=== PATIENT | male | born 1955 | race African-American/Black ===

== ENCOUNTER → 2016-06-02 | Outpatient (CLI) | payer BC | LOC: RAD 07:26 | PROVIDERS: ATTEND Internal Medicine | DX: K74.69 Other cirrhosis of liver (principal) | CPT/HCPCS: 74177 ==

== ENCOUNTER 2017-09-28 05:11 | Emergency (ER) | payer BC ==
[2017-09-28 07:31] LABS: ABSOLUTE LYMPHOCYTES (AUTO) 0.5 10^3/uL (0.5-4.7); ABSOLUTE MONOCYTES (AUTO) 0.2 10^3/uL (0.1-1.4); ABSOLUTE NEUT (AUTO) 1.6 10^3/uL (1.7-8.2); BASOPHILS % (AUTO) 0.8 % (0-2); HEMATOCRIT 37.1 % (37.9-51.0); HEMOGLOBIN 12.5 g/dL (13.5-17.0); LYMPHOCYTES % (AUTO) 23.6 % (13-45); MEAN CORPUSCULAR HEMOGLOBIN 28.3 pg (27.0-33.4); MEAN CORPUSCULAR HGB CONC 33.6 g/dL (32.0-36.0); MEAN CORPUSCULAR VOLUME 84 fl (80-97); MONOCYTES % (AUTO) 7.5 % (3-13); RED BLOOD COUNT 4.41 10^6/uL (4.35-5.55); RED CELL DISTRIBUTION WIDTH 13.6 % (11.5-14.0); SEGMENTED NEUTROPHILS % (AUTO) 67.1 % (42-78); TOTAL CELLS COUNTED % (AUTO) 100 %; WHITE BLOOD COUNT 2.3 10^3/uL (4.0-10.5)
--- NOTE | 2017-09-28 07:41 | RADIOLOGY REPORT (SQ) ---
EXAM DESCRIPTION: XR CHEST 2 VIEWS COMPLETED DATE/TME: 09/28/2017 06:05 CLINICAL HISTORY: 61 years, Male, sob COMPARISON: None. NUMBER OF VIEWS: Two TECHNIQUE: Two views of the chest LIMITATIONS: None. FINDINGS: There is elevation of the right hemidiaphragm. The lungs are clear. The heart is normal in size. There is no pneumothorax or pleural effusion. There is no acute fracture IMPRESSION: No acute cardiopulmonary abnormality 2010 [employer]- All Rights Reserved
--- NOTE | 2017-09-28 07:42 | ER Document Report ---
ED Respiratory Problem - General Chief Complaint: Shortness Of Breath Stated Complaint: SHORT OF BREATH Time Seen by Provider: 09/28/17 07:19 Mode of Arrival: Ambulatory Information source: Patient Notes: Pt is a 61 year old male who presents to the ER today for shortness of breath that started last night. Pt works outside in the heat and has no history of asthma/copd, does not smoke. He does have a history of a blood clot to his right femoral vein from a liver transplant over a year ago, is not on blood thinners any longer. He denies chest pain with this sob, states it never hurt to take a deep breath and that the sob is gone now. He denies cough, fever, chills, wheezing or calf pain recently. TRAVEL OUTSIDE OF THE [place] IN LAST 30 DAYS: No - Related Data Allergies/Adverse Reactions: No Known Allergies Allergy (Unverified 05/20/14 13:29) Past Medical History - General Information source: Patient - Social History Smoking Status: Never Smoker Chew tobacco use (# tins/day): No Frequency of alcohol use: None Drug Abuse: None Family History: Reviewed & Not Pertinent Patient has suicidal ideation: No Patient has homicidal ideation: No - Past Medical History Cardiac Medical History: Reports: Hx Hypertension Renal/ Medical History: Denies: Hx Peritoneal Dialysis - Immunizations Hx Diphtheria, Pertussis, Tetanus Vaccination: Yes Hx Pneumococcal Vaccination: 12/10/13 Review of Systems - Review of Systems Constitutional: No symptoms reported EENT: No symptoms reported Cardiovascular: No symptoms reported Respiratory: See HPI Gastrointestinal: No symptoms reported Genitourinary: No symptoms reported Male Genitourinary: No symptoms reported Musculoskeletal: No symptoms reported Skin: No symptoms reported Hematologic/Lymphatic: No symptoms reported Neurological/Psychological: No symptoms reported Physical Exam - Vital signs Vitals: Temp Pulse Resp BP Pulse Ox 98.4 F 65 26 H 121/78 95 09/28/17 05:17 09/28/17 05:17 09/28/17 05:17 09/28/17 05:17 09/28/17 05:17 - Notes Notes: PHYSICAL EXAMINATION: GENERAL: well appearing and in no acute distress. HEAD: Atraumatic, normocephalic. EYES: Pupils equal round and reactive to light, extraocular movements intact, sclera anicteric, conjunctiva are normal. ENT: airway patent NECK: Normal range of motion, supple without lymphadenopathy LUNGS: CTAB and equal. No wheezes rales or rhonchi. HEART: Regular rate and rhythm without murmurs ABDOMEN: Soft, no tenderness. No guarding, no rebound BACK: no vertebral tenderness, normal ROM GI/: no CVA tenderness EXTREMITIES: Normal range of motion, no pitting edema. No cyanosis. NEUROLOGICAL: Cranial nerves grossly intact. Normal sensory/motor exams. PSYCH: Normal mood, normal affect. SKIN: Warm, Dry, normal turgor, no rashes or lesions noted Course - Re-evaluation Re-evalutation: 09/28/17 23:26 Pt has unremarkable workup today, advised his platelet level is low at 81, his chest x ray is normal, d dimer is normal, but has normal vitals here. He has not been sob at all here in the ER. I will provide him with an inhaler rx and have him use that as needed. to follow up with his pcp. and pt in agreement with plan. - Vital Signs Vital signs: Temp Pulse Resp BP Pulse Ox 98 F 65 20 150/70 H 95 09/28/17 09:50 09/28/17 05:17 09/28/17 09:51 09/28/17 09:50 09/28/17 09:51 - Laboratory Result Diagrams: 09/28/17 07:11 09/28/17 07:11 Laboratory results interpreted by me: 09/28/17 09/28/17 07:11 07:11 WBC 2.3 L Hgb 12.5 L Hct 37.1 L Plt Count 81 L Absolute Neutrophils 1.6 L Chloride 108 H Discharge - Discharge Clinical Impression: SOB (shortness of breath) Condition: Stable Disposition: HOME, SELF-CARE Additional Instructions: Return immediately for any new or worsening symptoms. Follow up with primary care provider, call tomorrow to make followup appointment. We are giving you an inhaler today, please use it every 4 hours as needed for shortness of breath. It does not appear like you have a blood clot today, your cardiac workup was normal, you are not having some type of injury to her heart today. Your chest x-ray was normal today. He did not have pneumonia. Prescriptions: Albuterol Sulfate [Proair HFA Inhalation Aerosol 8.5 gm MDI] 2 puff IH Q4H PRN # 1 mdi PRN Reason: Forms: Return to Work Referrals: HENRY KELLER MD [Primary Care Provider] - Follow up as needed
[2017-09-28 07:47] LABS: ANION GAP 10 (5-19); BLOOD UREA NITROGEN 12 mg/dL (7-20); CALCIUM 9.1 mg/dL (8.4-10.2); CARBON DIOXIDE 24 mmol/L (22-30); CHLORIDE 108 mmol/L (98-107); GLUCOSE 94 mg/dL (75-110); POTASSIUM 4.4 mmol/L (3.6-5.0); SODIUM 142.1 mmol/L (137-145)
[2017-09-28 07:51] LABS: PLATELET COUNT 81 10^3/uL (150-450)
[2017-09-28 09:51] VITALS: BP 150/70
--- NOTE | 2017-09-28 22:05 | EKG REPORT ---
SEVERITY:- ABNORMAL ECG - SINUS RHYTHM FIRST DEGREE AV BLOCK : Confirmed by: Sena Friedman 28-Sep-2017 22:05:05
== END 2017-09-28 09:52 | disposition home or self-care (01) ==
LOC: ER 05:11
DX: R06.02 Shortness of breath (principal); D69.6 Thrombocytopenia, unspecified; I10 Essential (primary) hypertension; Z86.718 Personal history of other venous thrombosis and embolism; Z94.4 Liver transplant status
CPT/HCPCS: 36415; 71046; 80048; 84484; 85025; 85379; 93005; 93010; 99285